=== PATIENT | female | born 1960 | race Caucasian/White ===

== ENCOUNTER 2019-09-24 18:00 | Outpatient (CLI) | payer OTHER | END 2019-09-24 18:01 | disposition home or self-care (01) | LOC: SLEEPLAB 18:00 | PROVIDERS: ATTEND Family Medicine | DX: G47.33 Obstructive sleep apnea (adult) (pediatric) (principal); R53.83 Other fatigue; R40.0 Somnolence; R51 Headache; E66.9 Obesity, unspecified; R06.83 Snoring; F41.9 Anxiety disorder, unspecified; G47.00 Insomnia, unspecified; F32.9 Major depressive disorder, single episode, unspecified; Z68.41 Body mass index [BMI] 40.0-44.9, adult | CPT/HCPCS: 95806 ==

== ENCOUNTER 2019-12-06 08:20 | Outpatient (CLI) | payer OTHER ==
--- NOTE | 2019-12-06 13:35 | MRI ---
MR OF THE RIGHT KNEE WITHOUT CONTRAST: 12/06/19 INDICATION: Right knee pain. COMPARISON: None. FINDINGS: There is diffuse chondral thinning involving the femorotibial compartments with marginal osteophytes. There is a near full thickness delaminating tear involving the lateral patellar facet measuring 1.2 cm. There is a radial tear involving the posterior horn and posterior root of the medial meniscus wit h partial medial extrusion. Lateral meniscus is intact. There is an intra-articular body seen adjacen t to the base of the PCL measuring 6 mm. The ACL, PCL, MCL and LCLC are intact. The extensor mechanis m is intact. IMPRESSION: 1. Mild osteoarthrosis of the right knee. 2. Medial meniscal tear. 3. Intra-articular body. POS: BH
== END 2019-12-06 08:21 | disposition home or self-care (01) ==
LOC: SCSMRI 08:20
PROVIDERS: ATTEND Orthopaedic Surgery
DX: M17.11 Unilateral primary osteoarthritis, right knee (principal); S83.241A Other tear of medial meniscus, current injury, right knee, initial encounter

== ENCOUNTER 2019-12-14 07:29 | Outpatient (CLI) | payer OTHER ==
[2019-12-14 18:01] LABS: #Eosinphils 0.2 thou/uL (0.0-0.7); #Lymphocytes 2.8 thou/uL (1.20-3.40); #Monocytes 0.6 thou/uL (0.11-0.59); #Neutrophils 4.2 thou/uL (1.40-6.50); %Basophils 0.5 % (0.0-1.0); %Eosinophils 2.7 % (0.0-10.0); %Lymphocytes 35.9 % (21.0-51.0); %Monocytes 7.8 % (0.0-10.0); %Neutrophils 53.1 % (42.0-75.0); Hemoglobin 13.6 g/dL (12.0-16.0); Mean Corpuscular HGB CONC 33.9 g/dL (32.0-36.0); Mean Corpuscular Hemoglobin 31.7 pg (27.0-31.0); Mean Corpuscular Volume 93.6 fL (78.0-98.0); Mean Platelet Volume 7.1 fL (7.4-10.4); Platelet Count 230 thou/uL (130-400); White Blood Cell (WBC) Count 7.8 thou/uL (4.8-10.8)
[2019-12-14 18:14] LABS: Anion Gap 13 mmol/L (10-20); BUN (Urea Nitrogen) 28 mg/dL (9.8-20.1); Calc. Creatinine Clearance 0 mL/min (70-130); Calcium 8.8 mg/dL (7.8-10.44); Carbon Dioxide 25 mmol/L (22-29); Chloride 106 mmol/L (98-107); Estimated GFR-MDRD 71; Glucose 110 mg/dL (70-105); Potassium 4.3 mmol/L (3.5-5.1); Sodium 140 mmol/L (136-145)
[2019-12-14 18:17] LABS: Bacteria/HPF None Seen HPF (None Seen); Bilirubin Negative (Negative); Blood, Urine Negative (Negative); Clarity Clear (Clear); Glucose, Urine (Dipstick) Normal (Negative); Ketone, Urine Negative (Negative); Leukocyte Negative Leu/uL (Negative); Nitrite Negative (Negative); Protein, Urine (Dipstick) 10 mg/dL (Neg-Trace); RBC/HPF 0-3 HPF (0-3); Specific Gravity, Urine 1.037 (1.002-1.036); Urobilinogen Normal mg/dL (Less than 2); WBC/HPF 0-3 HPF (0-3); pH, Urine 6.5 (5.0-9.0)
[2019-12-14 18:20] LABS: Prothrombin Time 13.9 sec (12.0-14.7)
[2019-12-15 15:22] LABS: SARS-CoV-2 MS2 Positive; SARS-CoV-2 N Gene Negative; SARS-CoV-2 S Gene Negative; SARS-CoV-2 by NAA Not Detected (NotDetected); SARS-CoV-2 orf1ab Negative
--- NOTE | 2019-12-17 17:27 | EKG ---
Test Reason : Blood Pressure : / mmHG Vent. Rate : 083 BPM Atrial Rate : 083 BPM P-R Int : 180 ms QRS Dur : 140 ms QT Int : 400 ms P-R-T Axes : 065 029 064 degrees QTc Int : 470 ms Normal sinus rhythm Left bundle branch block Abnormal ECG No previous ECGs available Confirmed by DR. Alison WILLINGHAM ([id number]) on 12/17/2019 5:26:51 PM Referred By: LEXUS Confirmed By:DR. Alison WILLINGHAM
== END 2019-12-14 07:30 | disposition home or self-care (01) ==
LOC: LABBT 07:29
PROVIDERS: ATTEND Orthopaedic Surgery
DX: Z01.818 Encounter for other preprocedural examination (principal); Z20.828 Contact with and (suspected) exposure to other viral communicable diseases; S83.242A Other tear of medial meniscus, current injury, left knee, initial encounter; M17.12 Unilateral primary osteoarthritis, left knee
CPT/HCPCS: 80048; 81001; 85025; 85610; 87635; 93005; 93010; U0003

== ENCOUNTER 2019-12-14 13:00 | Inpatient (IN) | payer OTHER ==
[2019-12-17 09:09] VITALS: BMI 47.6
[2019-12-18] MEDS ORDERED: Sodium Chloride 0.9% 100 ML ONE (06:11)
[2019-12-18] MEDS ORDERED: Tranexamic Acid 1,000 MG/10 ML VIAL ONE (06:11)
[2019-12-18] MEDS ORDERED: Ropivacaine 0.2% HCl/PF 20 ML ONE (06:14)
[2019-12-18] MEDS ORDERED: Fentanyl 100 MCG/2 ML VIAL ONE ×3 (06:14→09:49)
[2019-12-18] MEDS ORDERED: Midazolam HCl 2 mg/2 ml Vial ONE (06:14)
[2019-12-18] MEDS ORDERED: Zolpidem Tartrate 5 MG TAB PO PRN ×2 (06:45→06:55)
[2019-12-18] MEDS ORDERED: Ropivacaine HCl/PF 250 ML in Premix Bag 1 BAG NERVE BLCK SCH (06:45)
[2019-12-18] MEDS ORDERED: Promethazine HCl 25 MG/ML VIAL IM PRN ×2 (06:45→06:55)
[2019-12-18] MEDS ORDERED: Ondansetron PF 4 MG/2 ML Vial IVP PRN ×2 (06:45→06:55)
[2019-12-18] MEDS ORDERED: diphenhydrAMINE 25 MG CAP PO PRN (06:55)
[2019-12-18] MEDS ORDERED: Acetaminophen 325 MG TAB PO PRN (06:55)
[2019-12-18] MEDS ORDERED: HYDROcodone/Acetaminophen 10/325 mg Tablet PO PRN ×2 (06:55)
[2019-12-18] MEDS ORDERED: Baclofen 10 MG TAB PO PRN (07:23)
--- NOTE | 2019-12-18 09:52 | RAD ---
XR Knee Lt 2 View HISTORY: Left total knee replacement FINDINGS: There are recent postop changes of total knee arthroplasty in good position and alignment. Soft tissu e air is present.
[2019-12-18] MEDS: Fentanyl 100 MCG/2 ML VIAL IV PRN (11:39)
[2019-12-18] MEDS: Atenolol 50 MG TAB PO SCH (11:45)
[2019-12-18] MEDS: DULoxetine 60 MG CAP PO SCH (11:45)
[2019-12-18] MEDS: Rosuvastatin 20 MG TAB PO SCH (11:46)
[2019-12-18] MEDS ORDERED: Ondansetron PF 4 MG/2 ML Vial ONE (12:38)
[2019-12-18] MEDS ORDERED: Lidocaine 1% PF 5 ML VIAL ONE (12:38)
[2019-12-18] MEDS ORDERED: Ketorolac Tromethamine 30 MG/ML VIAL ONE (12:38)
[2019-12-18] MEDS ORDERED: PHENYLEPHRINE-NS 100 MCG/ML 10 ML SYRINGE ONE (12:38)
[2019-12-18] MEDS ORDERED: Ropivacaine 0.2% HCl/PF (40 MG/20 ML VIAL) ONE (12:38)
[2019-12-18] MEDS ORDERED: Bupivacaine HCl 0.5%/Epinephrine 1:200,000/PF 30 ml Vial ONE (12:38)
[2019-12-18] MEDS ORDERED: PROPOFOL 200 MG/20 ML VIAL ONE (12:38)
[2019-12-18] MEDS: Sodium Chloride 0.9% 1,000 ML IV SCH ×2 (14:00→19:50)
--- NOTE | 2019-12-18 14:23 | OP ---
DATE OF PROCEDURE: 12/18/2019 PROCEDURE PERFORMED: Left total knee arthroplasty using [place] triathlon 4 femur, 3 tibia, 9 mm CS X3 polyethylene, and A29 patella. AXLE TURNER: [place]. The housing assistant/co-surgeon was present through the entire procedure and was responsible for providing exposure, tissue retraction and any necessary limb or tissue manipulation required to obtain necessary reduction or hardware placement. The housing assistant/co-surgeon also provided bleeding control, tissue closure, and suturing in conjunction with the primary surgeon. ESTIMATED BLOOD LOSS: Minimal. SPECIMEN: None. DRAINS: None. COMPLICATION: None. TOURNIQUET TIME: 56 minutes. DESCRIPTION OF PROCEDURE: After informed consent was obtained in the preoperative holding area, the patient was taken to the operative suite where general anesthesia was induced. Once adequate level of general anesthesia was obtained, the patient was positioned and a well-padded tourniquet was placed around the left proximal thigh. The left lower extremity was then prepped and draped in the usual sterile fashion. Prior to exsanguination, a time-out was called and all members of the surgical team agreed upon site, surgeon, and patient. The extremity was then exsanguinated and the tourniquet was raised. A midline longitudinal incision was then made directly over the patella extending 2 fingerbreadths above the superior pole of the patella and 2 fingerbreadths inferior to the inferior patellar pole of the patella. Deeper subcutaneous layers were dissected sharply and local bleeding was controlled with Bovie electrocautery. A quad tendon longitudinal split was then made sharply and a median parapatellar arthrotomy was carried out both sharp and with Bovie electrocautery, carried down to 1 fingerbreadth medial to the tibial tubercle. The knee was then placed into flexion and the patella was everted nicely, and a copious fat pad ectomy was performed allowing for greater exposure of the tibia. The computer-assisted distal femoral fiducial was then placed and pinned firmly, and the distal femoral cutting guide was pinned firmly into place. The oscillating saw was then used to remove the appropriate amount of bone. The 4-in-1 cutting block was then placed on the distal femur and the oscillating saw was used to remove the appropriate amount of bone off the anterior, posterior, and chamfer cuts. After completion of bone cuts, the anterior cruciate ligament was resected sharply and the posterior cruciate ligament retractor was placed and the tibia was subluxed for better exposure. Partial meniscectomies were carried out, and the tibial computer-assisted fiducial was pinned, and the cutting guide was placed. Oscillating saw was then used to remove the bone, with Hohmann retractors used to take care and protect the collateral ligaments. After the tibial resection was performed, a laminar leak inspector was placed in between the freshened bone cuts. The knee placed at 90 degrees and further bilateral meniscectomies were carried out, and the curved osteotome and curettage were used to remove any excess bone spurs in the posterior compartment. The trial femoral component, tibial baseplate were placed with the appropriate polyethylene trial insert with an appropriate polyethylene spacer and patellar button. The knee was taken through full range of motion with flexion and extension from 0 to 90 degrees and patellar broach squarely in the trochlea without any squinting or subluxation noted. The knee was also stable to varus and valgus stressing at 0, 15, 45, and 90 degrees of flexion. The drawer was negative. All trial components were then removed and the keel punch was used to provide the appropriate defect in the tibia with a mallet. The freshened bone cuts were copiously irrigated with pulsatile lavage of about 1.5 L to remove all excess debris. The freshened bone cuts were then dried with suction and lap sponge. The knee was placed in flexion and retractors were placed to provide access to all bone cuts. Tobramycin-impregnated methyl methacrylate cement was then placed on the freshened bone cuts and implants which were malleted firmly into place. Curettage and [place] elevators were used to remove any excess bone cement. The knee was placed into full extension and the patellar button was placed under compression, and the cement was allowed to cure. Once completed, the components were again taken through full range of motion and copious irrigation of the knee was carried out with another liter of normal saline. All components were inspected fully with full range of motion and varus and valgus stressing. There was no laxity noted and full extension was observed clinically. Primary closure was accomplished with #2 interrupted Vicryl stitch of the arthrotomy defect. This was oversewn with a #2 running Quill barbed stitch. The gravitational platelet system was then injected into the arthrotomy prior to closure. The subcutaneous layer was then closed with a running 0 barbed Monocryl stitch and skin closure accomplished with a running subcuticular 3-0 Monocryl barbed Quill stitch and augmented with cement on the skin. Tourniquet was lowered. Good spontaneous return of distal pulses was noted clinically and a sterile dressing was applied to the incision. The procedure was terminated without any complications. The patient was awakened in the operative suite and the was removed, and the patient was taken to the recovery room in stable condition. Job ID: [id number]
[2019-12-18] MEDS: CEFAZOLIN 2 GM in Premix Bag 1 BAG IVPB SCH ×2 (15:37→20:48)
[2019-12-18] MEDS: Ketorolac Tromethamine 30 MG/ML VIAL IVP SCH ×2 (15:37→20:48)
[2019-12-18] MEDS: Aspirin 81 mg Enteric Coated Tablet PO SCH ×2 (15:38→20:48)
[2019-12-18] MEDS: Bupropion 150 MG XL TAB PO SCH (19:49)
[2019-12-18] MEDS: Aripiprazole 10 MG TAB PO SCH (20:48)
[2019-12-19] MEDS: Fentanyl 100 MCG/2 ML VIAL IV PRN ×2 (01:49→05:26)
[2019-12-19] MEDS: Sodium Chloride 0.9% 1,000 ML IV SCH ×2 (03:18→16:35)
[2019-12-19] MEDS: Ketorolac Tromethamine 30 MG/ML VIAL IVP SCH ×3 (05:27→22:11)
[2019-12-19 05:43] LABS: Hemoglobin 11.5 g/dL (12.0-16.0); Mean Corpuscular HGB CONC 33.4 g/dL (32.0-36.0); Mean Corpuscular Hemoglobin 31.1 pg (27.0-31.0); Mean Corpuscular Volume 93.2 fL (78.0-98.0); Mean Platelet Volume 6.6 fL (7.4-10.4); Platelet Count 196 thou/uL (130-400); RBC Distribution Width 12.8 % (11.5-14.5); Red Blood Cell (RBC) Count 3.69 mill/uL (4.20-5.40); White Blood Cell (WBC) Count 6.8 thou/uL (4.8-10.8)
[2019-12-19] MEDS: Bupropion 150 MG XL TAB PO SCH (07:51)
[2019-12-19] MEDS: Atenolol 50 MG TAB PO SCH (07:52)
[2019-12-19] MEDS: Aspirin 81 mg Enteric Coated Tablet PO SCH ×2 (07:52→19:52)
[2019-12-19] MEDS: Rosuvastatin 20 MG TAB PO SCH (07:52)
[2019-12-19] MEDS: Ferrous Gluconate 324 MG TAB PO SCH ×2 (07:52→18:18)
[2019-12-19] MEDS: DULoxetine 60 MG CAP PO SCH (07:52)
[2019-12-19] MEDS: Senokot S 8.6-50 MG TAB PO SCH ×2 (07:53→19:52)
[2019-12-19] MEDS: Multivitamin W/ Minerals 1 TAB PO SCH (07:53)
[2019-12-19] MEDS ORDERED: HYDROcodone/Acetaminophen 10/325 mg Tablet PO PRN (10:56)
[2019-12-19] MEDS ORDERED: traMADol HCl 50 MG TAB PO PRN ×2 (10:56)
[2019-12-19] MEDS: HYDROcodone/Acetaminophen 10/325 mg Tablet PO PRN ×2 (11:38→15:26)
[2019-12-19] MEDS: Aripiprazole 10 MG TAB PO SCH (19:52)
[2019-12-20] MEDS: Sodium Chloride 0.9% 1,000 ML IV SCH ×2 (00:37→10:42)
[2019-12-20] MEDS: Ketorolac Tromethamine 30 MG/ML VIAL IVP SCH ×2 (05:21→13:52)
[2019-12-20 08:11] VITALS: TEMP 99.6
[2019-12-20] MEDS: Ferrous Gluconate 324 MG TAB PO SCH (08:28)
[2019-12-20] MEDS: Aspirin 81 mg Enteric Coated Tablet PO SCH (08:29)
[2019-12-20] MEDS: Atenolol 50 MG TAB PO SCH (08:30)
[2019-12-20] MEDS: Bupropion 150 MG XL TAB PO SCH (08:32)
[2019-12-20] MEDS: Senokot S 8.6-50 MG TAB PO SCH (08:34)
[2019-12-20] MEDS: Multivitamin W/ Minerals 1 TAB PO SCH (08:35)
[2019-12-20] MEDS: Rosuvastatin 20 MG TAB PO SCH (08:35)
[2019-12-20] MEDS: DULoxetine 60 MG CAP PO SCH (08:35)
[2019-12-20] MEDS: HYDROcodone/Acetaminophen 10/325 mg Tablet PO PRN ×2 (08:35→13:53)
[2019-12-20 08:36] VITALS: BP 145/81
--- NOTE | 2019-12-21 14:00 | DIS ---
DATE OF ADMISSION: 12/18/2019 DATE OF DISCHARGE: 12/20/2019 This is Kylee Bryson PA-C dictating a report for Govind Shukla MD. PROCEDURE PERFORMED: Left total knee arthroplasty using [place] Triathlon components. BRIEF HOSPITAL COURSE: This is a 59-year-old female, who was indicated for the above-mentioned procedure. She did well in the operative suite. Postoperatively, she was admitted to [place] [address] surgical floor. Here, she worked with Physical and Occupational therapy. Her pain was managed by [facility]. She did receive some postoperative antibiotics as well. On postoperative day #1, she was up and out of bed, doing well, ambulating with physical therapy. She continued to improve and on postoperative day #2, she was discharged home after working with Physical Therapy. No complications incurred throughout her hospital stay. DISCHARGE DISPOSITION: Home. DISCHARGE CONDITION: Stable. DISCHARGE INSTRUCTIONS: The patient will follow up with Dr. Shukla as scheduled. She may ambulate as tolerated. She will keep her surgical site clean, dry, and intact. DISCHARGE MEDICATIONS: See MAR. Job ID: [id number]
== END 2019-12-20 15:44 | disposition home or self-care (01) | DRG 470 ==
LOC: SURG A 12-18 05:37 → SJJU 12-18 10:43 → EDSTATUS 12-18 13:00
PROVIDERS: ADMIT Orthopaedic Surgery; ATTEND Orthopaedic Surgery
PROC: 0SRD0J9 Replacement of Left Knee Joint with Synthetic Substitute, Cemented, Open Approach (ICD-10-PCS; principal; 2019-12-18)
DX: M17.12 Unilateral primary osteoarthritis, left knee (principal); Z68.42 Body mass index [BMI] 45.0-49.9, adult; I10 Essential (primary) hypertension; E78.5 Hyperlipidemia, unspecified; M23.204 Derangement of unspecified medial meniscus due to old tear or injury, left knee; E66.01 Morbid (severe) obesity due to excess calories; F41.9 Anxiety disorder, unspecified; Z20.828 Contact with and (suspected) exposure to other viral communicable diseases; F32.9 Major depressive disorder, single episode, unspecified; Z79.899 Other long term (current) drug therapy; Z79.1 Long term (current) use of non-steroidal anti-inflammatories (NSAID)
CPT/HCPCS: 36415; 85027; C1713; C1776; J0690; J1885; J2250; J2405; J2704; J2795; J3010; J3490

== ENCOUNTER 2020-07-24 09:34 | Outpatient (CLI) | payer OTHER | END 2020-07-24 09:35 | disposition home or self-care (01) | LOC: BICRAD 09:34 | PROVIDERS: ATTEND Anesthesiology Pain Medicine | DX: M43.16 Spondylolisthesis, lumbar region (principal); M47.816 Spondylosis without myelopathy or radiculopathy, lumbar region | CPT/HCPCS: 72110 ==

== ENCOUNTER 2021-01-07 09:42 | Outpatient (CLI) | payer OTHER ==
[2021-01-07 11:00] LABS: #Eosinphils 0.2 10x3/uL (0.0-0.5); #Monocytes 0.7 10x3/uL (0.0-1.1); #Neutrophils 4.3 10x3/uL (1.5-8.4); %Basophils 0.5 % (0.0-2.0); %Eosinophils 2.8 % (0.0-6.0); %Lymphocytes 31.7 % (18.0-47.0); %Neutrophils 55.6 % (40.0-75.0); Hemoglobin 14.9 g/dL (12.0-15.5); Mean Corpuscular HGB CONC 33.3 g/dL (32.0-36.0); Mean Corpuscular Hemoglobin 29.7 pg (27.0-33.0); Mean Corpuscular Volume 89.4 fl (81.6-98.3); Mean Platelet Volume 9.3 fl (7.4-10.4); Platelet Count 282 10x3/uL (150-450); RBC Distribution Width 13.2 % (11.5-14.5); Red Blood Cell (RBC) Count 5.01 10x6/uL (3.90-5.03); White Blood Cell (WBC) Count 7.8 10x3/uL (3.5-10.5)
[2021-01-07 11:12] LABS: Prothrombin Time 11.2 sec (9.5-12.1)
[2021-01-07 11:24] LABS: Anion Gap 14 mmol/L (10-20); BUN (Urea Nitrogen) 12 mg/dL (9.8-20.1); Calc. Creatinine Clearance 0 mL/min (70-130); Calcium 9.4 mg/dL (7.8-10.44); Carbon Dioxide 27 mmol/L (22-29); Chloride 102 mmol/L (98-107); Glucose 166 mg/dL (70-105); Potassium 4.4 mmol/L (3.5-5.1); Sodium 139 mmol/L (136-145)
[2021-01-07 14:20] LABS: Bilirubin Neg (Negative); Blood, Urine Negative (Negative); Clarity Clear (Clear); Glucose, Urine (Dipstick) Normal (Negative); Ketone, Urine Negative (Negative); Leukocyte Negative (Negative); Nitrite Negative (Negative); Protein, Urine (Dipstick) Negative (Neg-Trace); Urobilinogen Normal mg/dL (Less than 2)
[2021-01-07 17:08] LABS: SARS-CoV-2 PCR by NAA Not Detected (NotDetected)
== END 2021-01-07 09:43 | disposition home or self-care (01) ==
LOC: LABBT 09:42
PROVIDERS: ATTEND Orthopaedic Surgery
DX: Z01.812 Encounter for preprocedural laboratory examination (principal); M17.11 Unilateral primary osteoarthritis, right knee; Z20.822 Contact with and (suspected) exposure to COVID-19
CPT/HCPCS: 80048; 81003; 85025; 85610; 87081; U0003; U0005

== ENCOUNTER 2021-01-12 05:34 | Inpatient (IN) | payer OTHER ==
[2021-01-09 10:33] VITALS: BMI 47.8
[2021-01-12] MEDS ORDERED: Fentanyl 100 MCG/2 ML VIAL ONE ×4 (06:01→09:49)
[2021-01-12] MEDS ORDERED: Sodium Chloride 0.9% 100 ML ONE (06:08)
[2021-01-12] MEDS ORDERED: ceFAZolin Sodium (SDC) 2 GM/100 ML BAG ONE (06:08)
[2021-01-12] MEDS ORDERED: Tranexamic Acid 1,000 MG/10 ML VIAL ONE (06:08)
[2021-01-12] MEDS ORDERED: Midazolam HCl 2 mg/2 ml Vial ONE (06:39)
[2021-01-12] MEDS ORDERED: Lidocaine 1% PF 5 ML VIAL ONE (06:39)
[2021-01-12] MEDS ORDERED: Dexamethasone 20 MG/5 ML VIAL ONE (07:07)
[2021-01-12] MEDS ORDERED: Bupivacaine HCl 0.5%/Epinephrine 1:200,000/PF 30 ml Vial ONE (07:07)
[2021-01-12] MEDS ORDERED: PROPOFOL 200 MG/20 ML VIAL ONE (07:07)
[2021-01-12] MEDS ORDERED: Ondansetron PF 4 MG/2 ML Vial ONE (07:07)
[2021-01-12] MEDS ORDERED: Fentanyl 100 MCG/2 ML VIAL SLOW IVP PRN (07:13)
[2021-01-12] MEDS ORDERED: Promethazine HCl 25 MG/ML VIAL IM PRN ×2 (07:15→09:08)
[2021-01-12] MEDS ORDERED: Zolpidem Tartrate 5 MG TAB PO PRN ×2 (07:15→09:08)
[2021-01-12] MEDS ORDERED: traMADol HCl 50 MG TAB PO PRN ×2 (07:15)
[2021-01-12] MEDS ORDERED: HYDROcodone/Acetaminophen 10/325 mg Tablet PO PRN (07:15)
[2021-01-12] MEDS ORDERED: Ondansetron PF 4 MG/2 ML Vial IVP PRN ×2 (07:15→09:08)
[2021-01-12] MEDS ORDERED: Ropivacaine 0.2% 550 ML 550 ML NERVE BLCK SCH (07:15)
[2021-01-12] MEDS ORDERED: Acetaminophen 325 MG TAB PO PRN (09:08)
[2021-01-12] MEDS ORDERED: diphenhydrAMINE 25 MG CAP PO PRN (09:08)
[2021-01-12] MEDS ORDERED: Labetalol HCl 100 MG/20 ML VIAL ONE (09:49)
[2021-01-12] MEDS ORDERED: Morphine 4 MG/ML VIAL ONE (11:04)
[2021-01-12] MEDS ORDERED: HYDROmorphone 0.5 MG/0.5 ML SYRINGE ONE ×2 (11:23→12:38)
[2021-01-12] MEDS ORDERED: Ketorolac Tromethamine 30 MG/ML VIAL ONE (13:18)
[2021-01-12] MEDS: Ketorolac Tromethamine 30 MG/ML VIAL IVP SCH ×3 (13:23→23:39)
[2021-01-12] MEDS: Dextrose 5 %-0.45 % NaCl 1,000 ML IV SCH ×2 (14:57→19:10)
[2021-01-12] MEDS: HYDROcodone/Acetaminophen 10/325 mg Tablet PO PRN (15:29)
[2021-01-12] MEDS: CEFAZOLIN 2 GM in Sodium Chloride 0.9% 100 ML IVPB SCH ×2 (15:29→23:40)
[2021-01-12] MEDS: Aspirin 81 mg Enteric Coated Tablet PO SCH (19:33)
[2021-01-12] MEDS: Rosuvastatin 20 MG TAB PO SCH (19:33)
[2021-01-12] MEDS ORDERED: Aspirin 81 mg Enteric Coated Tablet PO SCH (21:00)
[2021-01-13 05:13] LABS: Hemoglobin 12.6 g/dL (12.0-16.0); Mean Corpuscular HGB CONC 34.1 g/dL (32.0-36.0); Mean Corpuscular Hemoglobin 31.2 pg (27.0-31.0); Mean Corpuscular Volume 91.5 fL (78.0-98.0); Mean Platelet Volume 7.2 fL (7.4-10.4); Platelet Count 232 thou/uL (130-400); RBC Distribution Width 12.1 % (11.5-14.5); Red Blood Cell (RBC) Count 4.02 mill/uL (4.20-5.40); White Blood Cell (WBC) Count 10.2 thou/uL (4.8-10.8)
[2021-01-13] MEDS: Dextrose 5 %-0.45 % NaCl 1,000 ML IV SCH ×3 (05:15→21:41)
[2021-01-13] MEDS: Ketorolac Tromethamine 30 MG/ML VIAL IVP SCH ×4 (06:22→23:18)
[2021-01-13] MEDS ORDERED: FLU VACC QS2021-22(6MOS UP)/PF 60 MCG/0.5 ML SYRINGE IM ONE (09:00)
[2021-01-13] MEDS: Aspirin 81 mg Enteric Coated Tablet PO SCH ×2 (09:41→19:45)
[2021-01-13] MEDS: Senokot S 8.6-50 MG TAB PO SCH ×2 (09:41→19:45)
[2021-01-13] MEDS: Oxybutynin ER 5 MG TAB PO SCH (09:41)
[2021-01-13] MEDS: Propranolol HCl LA 60 MG CAP PO SCH (09:41)
[2021-01-13] MEDS: buPROPion HCl 100 MG TAB PO SCH (09:41)
[2021-01-13] MEDS: Ferrous Gluconate 324 MG TAB PO SCH ×2 (09:42→19:45)
[2021-01-13] MEDS: DULoxetine 60 MG CAP PO SCH (09:42)
[2021-01-13] MEDS: Multivitamin W/ Minerals 1 TAB PO SCH (09:42)
[2021-01-13] MEDS: HYDROcodone/Acetaminophen 10/325 mg Tablet PO PRN ×3 (09:44→19:46)
[2021-01-13] MEDS: Rosuvastatin 20 MG TAB PO SCH (19:45)
[2021-01-14] MEDS: HYDROcodone/Acetaminophen 10/325 mg Tablet PO PRN ×3 (03:57→12:31)
[2021-01-14] MEDS: Ketorolac Tromethamine 30 MG/ML VIAL IVP SCH (03:59)
[2021-01-14] MEDS: Senokot S 8.6-50 MG TAB PO SCH (08:23)
[2021-01-14] MEDS: Ferrous Gluconate 324 MG TAB PO SCH (08:23)
[2021-01-14] MEDS: buPROPion HCl 100 MG TAB PO SCH (08:23)
[2021-01-14] MEDS: DULoxetine 60 MG CAP PO SCH (08:23)
[2021-01-14] MEDS: Aspirin 81 mg Enteric Coated Tablet PO SCH (08:23)
[2021-01-14] MEDS: Oxybutynin ER 5 MG TAB PO SCH (08:23)
[2021-01-14] MEDS: Multivitamin W/ Minerals 1 TAB PO SCH (08:23)
[2021-01-14] MEDS: Propranolol HCl LA 60 MG CAP PO SCH (09:36)
[2021-01-14] MEDS: Dextrose 5 %-0.45 % NaCl 1,000 ML IV SCH (10:24)
[2021-01-14 11:57] VITALS: BP 157/85; TEMP 98.6
== END 2021-01-14 12:56 | disposition home or self-care (01) | DRG 470 ==
LOC: SDC 05:34 → SURG A 09:08 → SDC 01-13 16:48
PROVIDERS: ADMIT Orthopaedic Surgery; ATTEND Orthopaedic Surgery
PROC: 0SRC0J9 Replacement of Right Knee Joint with Synthetic Substitute, Cemented, Open Approach (ICD-10-PCS; principal; 2021-01-12)
DX: M17.11 Unilateral primary osteoarthritis, right knee (principal); Z68.42 Body mass index [BMI] 45.0-49.9, adult; Z20.822 Contact with and (suspected) exposure to COVID-19; I10 Essential (primary) hypertension; E78.5 Hyperlipidemia, unspecified; G47.33 Obstructive sleep apnea (adult) (pediatric); E66.01 Morbid (severe) obesity due to excess calories; F41.9 Anxiety disorder, unspecified; F32.A Depression, unspecified; F43.10 Post-traumatic stress disorder, unspecified; Z91.048 Other nonmedicinal substance allergy status; Z91.040 Latex allergy status; Z90.710 Acquired absence of both cervix and uterus; Z99.89 Dependence on other enabling machines and devices; Z79.82 Long term (current) use of aspirin; Z79.899 Other long term (current) drug therapy
CPT/HCPCS: 36415; 85027; A4306; C1713; J0690; J1100; J1170; J1885; J2250; J2270; J2405; J2704; J2795; J3010; J3370; J3490; J7030

== ENCOUNTER 2021-09-23 10:58 | Outpatient (CLI) | payer OTHER | END 2021-09-23 10:59 | disposition home or self-care (01) | LOC: BICRAD 10:58 | PROVIDERS: ATTEND Nurse Practitioner Family | DX: R06.02 Shortness of breath (principal) | CPT/HCPCS: 71046 ==